=== PATIENT | male | born 1955 | race Two or more races ===

== ENCOUNTER 2017-04-12 13:43 | Emergency (ER) | payer MEDICAID ==
[~2017-04-12] VITALS: Ht 180.3 cm; Wt 77.1 kg
[2017-04-12 13:45] VITALS: BP 139/78
[2017-04-12] MEDS ORDERED: IBUPROFEN 400 MG TABLET ONE (14:49)
[2017-04-12] MEDS ORDERED: IBUPROFEN 200 MG TABLET ONE (14:49)
[2017-04-12] MEDS ORDERED: IBUPROFEN 600 MG TABLET PO ONE ×2 (14:58→15:00)
[2017-04-12] MEDS ORDERED: TDAP [DIPH/PERTUSSIS/TET] 0.5 ML VIAL IM ONE ×2 (15:27→15:30)
[2017-04-12] MEDS ORDERED: LIDOCAINE /MPF 1% VIAL 5 ML VIAL ONE (15:54)
== END 2017-04-12 17:27 | disposition home or self-care (01) ==
LOC: ER 13:45
DX: S91.312A Laceration without foreign body, left foot, initial encounter (principal); E11.9 Type 2 diabetes mellitus without complications; Z23 Encounter for immunization; Z79.4 Long term (current) use of insulin; W20.8XXA Other cause of strike by thrown, projected or falling object, initial encounter; Y93.89 Activity, other specified; Y92.89 Other specified places as the place of occurrence of the external cause; Y99.0 Civilian activity done for income or pay
CPT/HCPCS: 73630-TC; 90715; A4606; A6402; J3490; Z7610

== ENCOUNTER 2017-04-26 09:57 | Emergency (ER) | payer MEDICAID ==
[~2017-04-26] VITALS: Ht 180.3 cm; Wt 79.4 kg
[2017-04-26 09:57] VITALS: BP 152/88
== END 2017-04-26 10:44 | disposition home or self-care (01) ==
LOC: ER 09:57
DX: L03.116 Cellulitis of left lower limb (principal)
CPT/HCPCS: A4606; A6402; Z7610